=== PATIENT | male | born 1940 | race Caucasian/White ===

== ENCOUNTER → 2017-01-21 09:04 | Outpatient (CLI) | payer MEDICARE ==
[2011-01-20 12:12] VITALS: BMI 23.0
[2017-01-21 09:37] LABS: BASOPHILS 0.2 % (0-2); EOSINOPHILS 2.7 % (0-7); HEMATOCRIT 45.6 % (42.0-54.0); HEMOGLOBIN 15.3 g/dL (13.5-17.5); IMMATURE GRANULOCYTES 0.3 % (0-5); LYMPHOCYTES 21.5 % (15-50); MCH 31.7 pg (26.0-34.0); MCHC 33.6 g/dL (31.0-37.0); MCV 94.6 fL (80.0-100.0); MEAN PLATELET VOLUME 11.2 fL (7.4-10.4); MONOCYTES 9.8 % (2-11); NEUTROPHILS 65.5 % (40-80); PLATELET COUNT 261 10x3/uL (130-400); RBC 4.82 10x6/uL (4.20-6.10); RDW 12.4 % (11.5-14.5); WBC 8.8 10x3/uL (4.8-10.8)
[2017-01-21 09:47] LABS: HEMOGLOBIN A1C 6.6 % (4.8-6.0)
[2017-01-21 10:13] LABS: ALBUMIN 3.9 g/dL (3.4-5.0); ANION GAP 10.4 mmol/L (8-16); BILIRUBIN - TOTAL 0.49 mg/dL (0.2-1.3); CALCIUM 8.9 mg/dL (8.5-10.1); CARBON DIOXIDE 29.1 mmol/L (21.0-32.0); CHOL - HDL RATIO 3.1 ratio (2.3-4.9); CREATININE - SERUM 1.2 mg/dL (0.6-1.3); LDL-HDL RATIO 1.6 ratio (1.5-3.5); POTASSIUM - SERUM 4.5 mmol/L (3.5-5.1); PROTEIN - SERUM 7.5 g/dL (6.4-8.2); THYROID STIMULATING HORMONE 1.68 uIU/mL (0.36-3.74)
[2017-01-21 10:14] LABS: SCREENING PSA (YEARLY) 1.85 ng/mL (0.00-4.00)
== END | disposition home or self-care (01) ==
LOC: D.LAB 09:04
PROVIDERS: Family Medicine
DX: Z00.00 Encounter for general adult medical examination without abnormal findings (principal); E11.9 Type 2 diabetes mellitus without complications; E78.5 Hyperlipidemia, unspecified

== ENCOUNTER → 2017-11-17 09:30 | Day surgery (SDC) | payer MEDICARE ==
[2011-01-20 12:12] VITALS: BMI 23.0
[2017-11-17 10:30] LABS: BASOPHILS 0.3 % (0-2); EOSINOPHILS 2.4 % (0-7); HEMATOCRIT 43.5 % (42.0-54.0); IMMATURE GRANULOCYTES 0.2 % (0-5); LYMPHOCYTES 22.5 % (15-50); MCHC 34.5 g/dL (31.0-37.0); MCV 92.8 fL (80.0-100.0); NEUTROPHILS 65.6 % (40-80); PLATELET COUNT 234 10x3/uL (130-400); RBC 4.69 10x6/uL (4.20-6.10); RDW 12.7 % (11.5-14.5); WBC 9.9 10x3/uL (4.8-10.8)
[2017-11-17 10:34] LABS: APPEARANCE CLEAR (CLEAR); BILIRUBIN NEGATIVE (NEGATIVE); COLOR YELLOW (YELLOW); GLUCOSE NEGATIVE (NEGATIVE); KETONE NEGATIVE (NEGATIVE); NITRITE NEGATIVE (NEGATIVE); PROTEIN NEGATIVE (NEGATIVE); SPECIFIC GRAVITY 1.015 (1.005-1.020); UROBILINOGEN NORMAL (NORMAL)
[2017-11-17 10:59] LABS: ALBUMIN 3.9 g/dL (3.4-5.0); ANION GAP 9.5 mmol/L (8-16); BILIRUBIN - TOTAL 0.91 mg/dL (0.2-1.3); CALCIUM 8.5 mg/dL (8.5-10.1); CARBON DIOXIDE 30.6 mmol/L (21.0-32.0); CHOL - HDL RATIO 3.8 ratio (2.3-4.9); CREATININE - SERUM 1.3 mg/dL (0.6-1.3); LDL-HDL RATIO 2.1 ratio (1.5-3.5); POTASSIUM - SERUM 4.1 mmol/L (3.5-5.1); PROTEIN - SERUM 7.6 g/dL (6.4-8.2); THYROID STIMULATING HORMONE 1.53 uIU/mL (0.36-3.74)
[2017-11-17 11:01] LABS: SCREENING PSA (YEARLY) 1.94 ng/mL (0.00-4.00)
== END | disposition home or self-care (01) ==
LOC: D.LAB 09:30
PROVIDERS: Family Medicine
DX: I10 Essential (primary) hypertension (principal); E11.9 Type 2 diabetes mellitus without complications; I49.9 Cardiac arrhythmia, unspecified; N40.0 Benign prostatic hyperplasia without lower urinary tract symptoms; Z00.00 Encounter for general adult medical examination without abnormal findings; R00.0 Tachycardia, unspecified; R07.9 Chest pain, unspecified

== ENCOUNTER → 2017-11-27 10:25 | Outpatient (CLI) | payer MEDICARE ==
[2011-01-20 12:12] VITALS: BMI 23.0
--- NOTE | ~2017-11-27 | EC ---
PATIENT:DALLIN GODINEZ JR DATE OF SERVICE: 11/27/17 SEX: M MEDICAL RECORD: [id number] DATE OF : 44 LOCATION:[facility], [facility] AGE OF PATIENT: 77 ADMISSION DATE: 11/27/17 REFERRING PHYSICIAN: INTERPRETING PHYSICIAN: FLOR CARPIO MD ECHOCARDIOGRAM REPORT ECHO CHARGES 4 ECHO COMPLETE Date: 11/27 CLINICAL DIAGNOSIS: AFIB ECHOCARDIOGRAPHIC MEASUREMENTS (adult normal given) AC root (d.<3.7cm) 3.2 cm LV Septum d (<1.2 cm> 1.1 cm Valve Excursion 1.3 cm LV Septum (systole) 1.2 cm Left Atria (s.<4.0cm> 4.5 cm LVPW d(<1.2cm) 1.0 cm RV (d.<2.3cm) 2.6 cm LVPW (sytole) 1.3 cm LV diastole(<5.6CM) 4.7 cm MV E-F(>70mm/sec) cm LV systole 4.1 cm LVOT Diameter 1.9 cm MV exc.(>10mm) cm Est.ejection fraction (50-75%) % DOPPLER: LVIT cm/sec A cm/sec E 131 cm/sec LA cm/sec RVSP 15.7 mmHg LVOT 68 cm/sec AOP1/2T m/s Asc. Ao 106 cm/sec RVOT 67 cm/sec RA cm/sec PA 71 cm/sec AV Gradient Peak 4.5 mmHg AV Mean 2.8 mmHg AV Area 1.7 cm MV Gradient Peak 7.2 mmHg MV Mean 2.7 mmHg MV Area cm COMMENTS: Stationary Equipment Mechanic: Hesham FUENTES Renal Dietitian: 1 Dr. Carpio TAPE# PACS Pericardial Effusion N DATE OF SERVICE: 11/27/2017 PROCEDURE: Echocardiogram. FINDINGS: 1. Left ventricle chamber size is within normal limits. Left ventricular systolic function is normal. Overall ejection fraction estimated at 60%. 2. Left atrium is enlarged at 4.5 cm. Right atrium and right ventricular chamber sizes are as well mildly dilated. 3. Valvular structures have normal structure and motion. ECHOCARDIOGRAM REPORT [id number] DALLIN GODINEZ JR 4. Doppler interrogation reveals mild mitral regurgitation, mild tricuspid regurgitation, no other valvular insufficiency or stenosis. Pulmonary systolic pressure is normal estimated at 16 mmHg. 5. No evidence of pericardial effusion or left ventricular thrombus. TRANSINT:[id number] Voice Confirmation ID: [id number] DOCUMENT ID: [id number] FLOR CARPIO MD at 1834 CC: [id number] DICTATION DATE: 11/27/17 1446 LAUNDRY MACHINE OPERATOR: 11/27/17 1528 REG [facility] [address] [id number]
== END | disposition home or self-care (01) ==
LOC: D.ECHO 10:25
DX: I48.91 Unspecified atrial fibrillation (principal)

== ENCOUNTER 2018-01-25 11:06 | Outpatient (CLI) | payer MEDICARE ==
[~2018-01-25] VITALS: Ht 180.3 cm; Wt 77.3 kg
--- NOTE | ~2018-01-25 | HEMODYNAMI ---
PATIENT:DALLIN GODINEZ JR MEDICAL RECORD: [id number] : 44 LOCATION:D.CAT ADMISSION DATE: 01/25/18 Generatedon:01/25/201813:56 Patient name: DALLIN GODINEZ Patient #: [id number] SSN: : 1940 Date of study: 01/25/2018 Page: Of Hemodynamic Procedure Report Patient Data Patient Demographics Procedure consent was obtained First Name: DALLIN Gender: Male Last Name: GRETCHEN Suffix: [facility] Initial: Madelyn : 1940 Patient #: [id number] Age: 77 year(s) Race: Unknown Additional ID: [id number] Contact details [address]: [address] [place] [address] ROAD State: [place] City: [place] Zip code: [address] Past Medical History Allergies Allergen Reaction Date Comments Reported Penicillins 01/25/2018 Admission Admission Data Admission Date: 01/25/2018 Admission Time: 11:06 Height (in.): 71 BSA: 2 (m2) Height (cm.): 180.34 BMI: 24.69 (kg/m2) Weight (lbs.): 177 Weight (kg.): 80.29 Lab Results Lab Result Date: 01/25/2018 Lab Result Time: 0:00 Biochemistry Name Units Result Min Max BUN mg/dl 23 --(----)-* 7 18 Creatinine mg/dl 1.6 --(----)-* 0.6 1.3 CBC Name Units Result Min Max Hemoglobin g/dl 15.1 --(-*--)-- 13.5 17.5 Procedure Procedure Types Cath Procedure Diagnostic Procedure Cardioversion External DAVID Procedure Description Procedure Date Procedure Date: 01/25/2018 Procedure Start Time: 13:40 Procedure End Time: 13:54 Procedure Staff Name Function Wing Marie RT Clinical Lab Clerk Luis Eduardo Garcia MD Performing Physician Augusto Jang RN Nurse Michelle Francois RT Monitor Mary Batres Packaging Manager Asia Bray RT Monitor Lucien Knutson CRNA Additional personnel Procedure Data Cath Procedure Estimated blood loss: 0 ml Procedure Complications No complications Procedure Medications Medication Administration Route Dosage Oxygen etCO2 Nasal cannula 2 l/min unlisted medication 20 ml Refer to Anesthesia Notes for Sedation Medications Hemodynamics Rest BSA: 2 (m2) HGB: 15.1 (g/dl) O2 Consumption: Estimated: 243.17 (ml/min) O2 Consu mption indexed: Estimated:121.58 (ml/min/m) Heart Rate: 88 (bpm) Snapshots Pre Cath Intra NCS Post Cath Vital Signs Time Heart Resp SPO2 etCO2 NIBP (mmHg) Rhythm Pain Sedation Rate (ipm) (%) (mmHg) Status Level (bpm) 13:25:29 90 19 96 21.2 163/99(133) A-Flutter 0 (11) 10(A) , No pain 13:29:45 80 15 97 31.8 143/86(106) A-Flutter 0 (11) 10(A) , No pain 13:34:48 96 16 97 30.2 152/96(125) A-Flutter 0 (11) 10(A) , No pain 13:39:02 86 16 98 26.5 150/89(99) A-Flutter 0 (11) 10(A) , No pain 13:44:13 96 16 98 28.3 137/80(114) NSR 0 (11) 9(A) , No pain 13:48:29 54 16 93 31 112/67(87) NSR 0 (11) 9(A) , No pain 13:52:39 53 16 100 36.3 105/54(83) NSR 0 (11) 10(A) , No pain Medications Time Medication Route Dose Verified Delivered Reason Notes Effective ness by by 13:23:25 Oxygen etCO2 2 Luis Eduardo Casas used for Nasal l/min St Chalino Jang RN procedure cannula 13:24:13 visc. gargle 20 ml Luis Eduardo Casas Per lidocaine St Chalino Jang RN physician 13:24:16 Refer to Luis Eduardo Casas Anesthesia St Chalino Jang RN Notes for MD Sedation Medications Procedure Log Time Note 12:57:45 Time tracking: Regular hours (M-F 7:00 - 5:00) 12:57:51 Plan of Care:Hemodynamics will remain stable., Cardiac rhythm will remain stable., Comfort level will be maintained., Respiratory function will remain adequate., Patient/ family verbilizes understanding of procedure., Procedure tolerated without complication., Recovers from procedure without complications.. 12:57:55 Signed procedure consent form obtained from patient. 12:57:56 Diagnostic Cath status Elective 12:59:40 Patient Height : 71 inches 12:59:43 Patient Weight : 177 lbs 12:59:53 H&P Date Dictated: 01/14/2018 Within 30 days and on chart., H&P Addendum completed by physician on day of procedure. (MUST COMPLETE FOR ALL OUTPATIENTS). 13:00:04 Patient allergic to Penicillins 13:09:18 Lab Result : BUN 23 mg/dl 13::18 Lab Result : Creatinine 1.6 mg/dl 13:09:18 Lab Result : Hemoglobin 15.1 g/dl 13:11:28 Augusto Jang RN sent for patient. Start room use. 13:15:40 Mary Marquette Crop And Soil Scientist present for DAVID. 13:17:59 Patient arrived from Pre/Post Procedure Room to CCL 2. Patient remains on bed/stretcher for procedure. 13:18:01 Warm blankets applied, and pranav hugger turned on for patient comfort. 13:18:02 Correct patient and procedure confirmed by team. 13:18:03 ECG and BP/O2 sat monitors applied to patient. 13:23:25 Oxygen 2 l/min etCO2 Nasal cannula was administered by Augusto Jang RN; used for procedure; 13:24:13 visc. lidocaine 20 ml gargle was administered by Augusto Jang RN; Per physician; 13:24:16 Refer to Anesthesia Notes for Sedation Medications was administered by Augusto Jang RN; ; 13:24:22 Vital chart was started 13:24:25 Full Disclosure recording started 13:24:45 Rhythm: atrial fibrillation 13:26:10 Baseline sample Acquired. 13:26:15 Pre-procedure instructions explained to patient. 13:26:15 Pre-op teaching completed and patient verbalized understanding. 13:26:16 Family in patients room. 13:26:19 Patient NPO since Midnight. 13:26:20 Is patient on blood thinner?Yes 13:26:24 ACC The patient was administered the following blood thiners within the last 24 hours: Xarelto 13:26:25 Patient diabetic? No. 13:26:37 Previous problem with sedation/anesthesia? No ? 13:26:38 Snore? Yes 13:26:39 Sleep apnea? No 13:26:46 Deviated septum? No 13:26:47 Opens mouth fully? Yes 13:26:48 Sticks out tongue? Yes 13:26:52 Airway obstruction? No ? 13:26:57 Dentures? Yes PARTIAL 13:27:05 IV patent on arrival in left forearm with 0.9% NaCl at [facility]. 13:27:07 Lab results completed and on chart. 13:27:09 Alarms reviewed by R. N. 13:27:09 Sharps counted by scrub and verified by R.N. 13:32:21 --------ALL STOP TIME OUT------ 13:32:22 Final Timeout: patient, procedure, and site verified with staff and physician. All members of the team are in agreement. 13:32:56 Physical assessment completed. ASA score P 2 - A patient with mild systemic disease as per Luis Eduardo Garcia MD. 13:32:59 Sedation plan: TIVA Medication:Propofol 13:33:02 Lucien Knutson CRNA present and monitoring patient for TIVA. 13:35:20 Quick Combo opened to sterile field. 13:40:56 Procedure started. 13:41:33 DAVID started. 13:46:36 DAVID completed. 13:46:37 Quick combo pads placed on patients chest and back. 13:46:58 Defibrillator synced and charged to 200 Joules. 13:47:28 Shock delivered. 13:48:00 Patient cardioverted to sinus bradycardia. 13:48:06 Procedure ended.(Physican Out) 13:49:19 Post procedure rhythm: sinus bradycardia 13:49:26 Estimated blood loss: 0 ml 13:49:27 Post procedure instruction explained to patient.Patient verbalizes understanding. 13:49:27 Patient needs reinforcement of post procedure teaching. 13:49:42 Procedure and supply charges have been captured, reviewed, submitted and are correct. 13:49:47 Procedure Complication : No complications 13:54:49 Vital chart was stopped 13:54:49 See physician's report for complete and final results. 13:54:51 Report given to Pre/Post Procedure Room. 13:54:54 Patient transfered to Pre/Post Procedure Room with Bed. 13:54:56 Procedure ended. 13:54:56 Full Disclosure recording stopped 13:55:06 End room use (Document Last) Device Usage Item Manufacture Quantity Catalog Hospital Part Current Minimal Lot# / Name Number Charge Number Sheryl alvarado# Code [facility] 1 [id number] Combo Signature Audit [place] Stage Time Signature Unsigned Intra-Procedure 01/25/2018 Michelle Francois 1:56:04 PM RT(R) Signatures Monitor : Michelle Francois Signature : RT Date : Time : Monitor : Asia Signature : Counts RT Date : Time : [address] [address]
--- NOTE | ~2018-01-25 | TEE ---
PATIENT:DALLIN GODINEZ JR MEDICAL RECORD: [id number] LOCATION:D.[facility] AGE OF PATIENT: 77 ADMISSION DATE: 01/25/18 SEX: M REFERRING PHYSICIAN: INTERPRETING PHYSICIAN: NARCISA LAWRENCE MD TRANSESOPHAGEAL ECHOCARDIOGRAM Date: 01/25/18 DAVID CHARGE Y INDICATIONS: PRE CARDIOVERSION - R/O LA APPENDAGE CLOT PREMEDICATIONS: PATIENT'S RESPONSE PROCEDURE DOPPLER MEASUREMENTS: LVIT LA PA RA LVOT RVOT Asc. Ao AV Gradient Peak AV Mean AV Area MV Gradient Peak MV Mean MV Area INTERPRETATION: Doppler: 2-D: COLOR FLOW DOPPLER NORMAL SALINE STUDY: MISCELLANOUS: DIAGNOSIS: PLAN: Retail Account Representative:3 Dr. Narayanan Principal Automation Engineer: 1 EDDIE WANG COMMENTS: DATE OF SERVICE: 01/25/2018 TRANSESOPHAGEAL NOTE DESCRIPTION OF PROCEDURE: After general sedation via TIVA via anesthesia, transesophageal Omniplane probe was placed in the distal esophagus and the proximal stomach without difficulty. FINDINGS: Normal LV internal dimensions. Normal wall motion. Normal systolic TRANSESOPHAGEAL ECHOCARDIOGRAM REPORT [id number] DALLIN GODINEZ function. EF is greater than or equal to 55%. The aortic valve is tricuspid with good valve excursion. No AI is noted. Left atrium appears normal. Left atrium is well visualized with good contractility. No evidence of thrombus. Mitral valve has good excursion with no evidence of prolapse. Mild MR. Right-sided chamber is grossly normal. Trivial TR. At the end of procedure, transesophageal Omniplane probe was turned posteriorly and this showed minimal atherosclerotic debris in the descending aorta. IMPRESSION: Proceed to planned cardioversion. TRANSINT:[id number] Voice Confirmation ID: [id number] DOCUMENT ID: [id number] at 0802 CC: [id number] DICTATION DATE: 01/25/18 1355 MRI SUPERVISOR: 01/25/18 1645 DEP CLI 01/25/18 [place] [id number] [place] [id number]
--- NOTE | ~2018-01-25 | OP ---
PATIENT NAME: DALLIN GODINEZ JR MEDICAL RECORD: [id number] :44 LOCATION:D.CAT ADMISSION DATE: SURGEON: NARCISA LAWRENCE MD DATE OF OPERATION: 01/25/2018 CARDIOVERSION NOTE DESCRIPTION OF PROCEDURE: After general sedation with TIVA via anesthesia, a single synchronized shock at 200 joules was successful in restoring atrial fibrillation to normal sinus rhythm. IMPRESSION: Successful cardioversion. COMPLICATIONS: None. ESTIMATED BLOOD LOSS: Minimal. DISPOSITION: To the floor, stable. TRANSINT:[id number] Voice Confirmation ID: [id number] DOCUMENT ID: [id number] NARCISA LAWRENCE MD at 0802 CC: [id number] DICTATION DATE: 01/25/18 1356 SR VICE PRESIDENT: 01/25/18 1649 DEP CLI 01/25/18 [facility] [address] [place] [address]
[2018-01-25] MEDS ORDERED: ZESTRIL40 MG PO (11:51)
[2018-01-25] MEDS ORDERED: XARELTO20 MG PO (11:51)
[2018-01-25] MEDS ORDERED: BETAPACE 120 M120 MG PO (11:51)
[2018-01-25 11:58] VITALS: BP 169/113; Ht 180.3 cm; Wt 77.3 kg
[2018-01-25 12:23] LABS: BASOPHILS 0.2 % (0-2); EOSINOPHILS 3.6 % (0-7); HEMATOCRIT 43.9 % (42.0-54.0); HEMOGLOBIN 15.1 g/dL (13.5-17.5); IMMATURE GRANULOCYTES 0.2 % (0-5); LYMPHOCYTES 20.1 % (15-50); MCH 31.7 pg (26.0-34.0); MCHC 34.4 g/dL (31.0-37.0); MCV 92.2 fL (80.0-100.0); MEAN PLATELET VOLUME 11.3 fL (7.4-10.4); NEUTROPHILS 66.9 % (40-80); PLATELET COUNT 258 10x3/uL (130-400); RBC 4.76 10x6/uL (4.20-6.10); WBC 10.2 10x3/uL (4.8-10.8)
[2018-01-25 12:27] LABS: INR 1.95 (0.85-1.17); PROTIME 21.6 SECONDS (11.6-15.0)
[2018-01-25 12:28] LABS: ANION GAP 10.7 mmol/L (8-16); CALCIUM 8.7 mg/dL (8.5-10.1); CARBON DIOXIDE 29.8 mmol/L (21.0-32.0); CREATININE - SERUM 1.6 mg/dL (0.6-1.3); POTASSIUM - SERUM 4.5 mmol/L (3.5-5.1)
== END 2018-01-25 15:04 | disposition home or self-care (01) ==
LOC: D.CATH 11:06
PROVIDERS: Internal Medicine Interventional Cardiology
DX: I48.91 Unspecified atrial fibrillation (principal)